=== PATIENT | male | born 1995 | race African-American/Black ===

== ENCOUNTER → 2024-03-03 | Outpatient (CLI) | payer OTHER ==
[~2024-03-03] MED LIST: AMOCLA875 PO; IBUP800 PO; Naprosyn500 MG PO; SULTRIDS PO; Veetids 500500 MG PO
[2024-03-06 10:51] LABS: Alanine Aminotransfer (ALT/SGP 97 U/L (12-78); Albumin, Blood 4.1 g/dL (3.4-5.0); Albumin/Globulin Ratio 1.1 (0.8-1.8); Alk Phos 86 U/L (50-136); Anion Gap 11 mmol/L (3-11); Aspartate Aminotrans (AST/SGOT 42 U/L (12-37); Bilirubin, Total 0.4 mg/dL (0.1-1.0); Blood Urea Nitrogen 20 mg/dL (8-24); CHOL/HDL RATIO 4.4; CO2, Blood 22 mmol/L (21-32); Calcium, Blood 9.1 mg/dL (8.5-10.1); Chloride, Blood 110 mmol/L (98-108); Cholesterol 249 mg/dL (50-200); Creatinine, Blood 1.25 mg/dL (0.60-1.20); Globulin, Blood 3.9 g/dL (2.2-4.0); Glomerular Filtration Rate 79 (60-); Glucose, Blood 105 mg/dL (70-99); HDL Cholesterol 56 mg/dL (>39); LDL/HDL RATIO 2.9; Low Density Lipoprotein Chol 165 mg/dL (0-110); Potassium, Blood 4.2 mmol/L (3.5-5.5); Sodium, Blood 139 mmol/L (136-145); Triglycerides 140 mg/dL (30-140); Very Low Density Lipoprot Chol 28 mg/dL (6-28)
== END ==
LOC: LAB SHORT 16:13 → LAB 16:13
PROVIDERS: Student in an Organized Health Care Education/Training Program
DX: R63.8 Other symptoms and signs concerning food and fluid intake (principal)
CPT/HCPCS: 80053; 80061; 83036; 84443

== ENCOUNTER 2024-10-25 02:33 | Emergency (ER) | payer OTHER ==
[~2024-10-25] VITALS: Ht 185.4 cm; Wt 108.9 kg
[2024-10-25] MEDS ORDERED: Famotidine 20 MG Tab PO ONE (03:55)
[2024-10-25] MEDS ORDERED: Mag Hydrox/AL Hydrox/Simeth 30 ML UDC PO ONE (03:55)
[2024-10-25 04:02] VITALS: BP 113/68
[2024-10-25] MEDS ORDERED: ALMACONE SUSPE355 ML PO (04:09)
[2024-10-25] MEDS ORDERED: FAMO20 PO (04:09)
== END 2024-10-25 04:19 | disposition home or self-care (01) ==
LOC: ER 02:33
DX: K21.9 Gastro-esophageal reflux disease without esophagitis (principal); F17.200 Nicotine dependence, unspecified, uncomplicated; Z68.31 Body mass index [BMI] 31.0-31.9, adult
CPT/HCPCS: 93005; 93010; 99284; A9270

== ENCOUNTER 2025-05-13 09:31 | Emergency (ER) | payer OTHER ==
[~2025-05-13] VITALS: Ht 185.4 cm; Wt 105.2 kg
[~2025-05-13 09:31] MED LIST changes: +ALMACONE SUSPE355 ML PO; +FAMO20 PO
[2025-05-13] MEDS ORDERED: Ketorolac Tromethamine 15mg Vial IV ONE (10:35)
[2025-05-13] MEDS ORDERED: Ondansetron HCl 2 MG / ML 2ML Vial IV ONE (10:35)
[2025-05-13] MEDS ORDERED: NS 1,000 ML IV SCH (10:35)
[2025-05-13 11:05] LABS: BASOPHILS ABSOLUTE AUTO 0.04 K/mm3 (0.00-0.23); BASOPHILS PERCENT AUTO 1 % (0-2); EOSINOPHILS ABSOLUTE AUTO 0.04 K/mm3 (0.00-0.68); EOSINOPHILS PERCENT AUTO 1 % (0-6); Hematocrit 46.8 % (37.0-53.0); Hemoglobin 15.4 g/dL (13.5-17.5); IMMATURE GRAN ABSOLUTE AUTO 0.02 K/mm3 (0.00-0.10); IMMATURE GRAN PERCENT AUTO 0 % (0-1); LYMPHOCYTES ABSOLUTE AUTO 2.82 K/mm3 (0.84-5.20); LYMPHOCYTES PERCENT AUTO 35 % (21-46); MONOCYTES ABSOLUTE AUTO 0.47 K/mm3 (0.16-1.47); MONOCYTES PERCENT AUTO 6 % (4-13); Mean Corpuscular HGB Conc 32.9 g/dL (31.5-36.5); Mean Corpuscular Volume 82 fL (80-100); NEUTROPHILS ABSOLUTE AUTO 4.58 K/mm3 (1.96-9.15); NEUTROPHILS PERCENT AUTO 57 % (41-73); NRBC ABSOLUTE 0.00 K/mm3 (0.00-0.02); NRBC Auto 0.0 /100 WBC (0.0-0.2); Platelet Count 226 K/mm3 (150-400); RDW Coefficient Variation 14.1 % (11.7-14.2); RDW Standard Deviation 42.5 fL (35.1-46.3)
[2025-05-13 11:24] LABS: Alanine Aminotransfer (ALT/SGP 43.0 U/L (12-78); Albumin, Blood 4.1 g/dL (3.4-5.0); Albumin/Globulin Ratio 1.0 (0.8-1.8); Anion Gap 6.0 mmol/L (3-11); Aspartate Aminotrans (AST/SGOT 20.0 U/L (12-37); Bilirubin, Total 0.5 mg/dL (0.1-1.0); Blood Urea Nitrogen 12.0 mg/dL (8-24); CO2, Blood 26.0 mmol/L (21-32); Calcium, Blood 9.4 mg/dL (8.5-10.1); Chloride, Blood 108.0 mmol/L (98-108); Creatinine, Blood 1.33 mg/dL (0.60-1.20); Globulin, Blood 4.2 g/dL (2.2-4.0); Glucose, Blood 104.0 mg/dL (70-99); Potassium, Blood 4.4 mmol/L (3.5-5.5); Sodium, Blood 136.0 mmol/L (136-145); Total Protein, Blood 8.3 g/dL (6.4-8.2)
[2025-05-13] MEDS ORDERED: OLAN10A PO (12:21)
[2025-05-13] MEDS ORDERED: LOPE2C PO (12:37)
[2025-05-13] MEDS ORDERED: ONDA4ODT MM (12:37)
[2025-05-13 12:45] VITALS: BP 140/91
== END 2025-05-13 12:51 | disposition home or self-care (01) ==
LOC: ER 09:31
PROVIDERS: Emergency Medicine
DX: K52.9 Noninfective gastroenteritis and colitis, unspecified (principal); F17.200 Nicotine dependence, unspecified, uncomplicated; Z79.899 Other long term (current) drug therapy
CPT/HCPCS: 74177; 80053; 83690; 85025; 96361; 96374-59; 96375; 99284-25; J1885; J2405; J7030; Q9967